=== PATIENT | female | born 1990 | race Hispanic/Latino ===

== ENCOUNTER → 2019-02-18 | Outpatient (CLI) | payer OTHER ==
--- NOTE | 2019-02-19 09:00 | US ---
EXAM DESCRIPTION: Breast,Bilateral: Ultrasound CLINICAL HISTORY: 28 yearsFemaleRIGHT BREAST LUMP, PAIN IN BOTH BREASTS . No personal history of breast cancer. Remote family history of breast cancer. Menarche age 8. Childbirth age 18. Premenopausal. No HRT Lifetime risk of developing breast cancer (Tyrer-Cuzick model)(%): Not Calculated due to patient age below 35. COMPARISON: Baseline study at this facility. TECHNIQUE: Transcutaneous scanning of the bilateral breasts utilizing adamson-scale and Doppler modes. Scanning performed by the inspector integrated circuits ; remote monitoring by Dr. Mayorga. Diagnostic digital mammography was not performed. FINDINGS: Ultrasound: Scanning of the right breast at the 3:00 position. Region of pain 6 cm from the nipple. Mostly fibroglandular tissues with minimal fatty tissues. No dominant solid mass or distinct cyst. No overlying skin changes. No large calcifications. Scanning of the left breast at the region of pain 9:00 position, 6 cm from the nipple. No dominant solid mass or distinct cyst. No large calcifications. No overlying skin changes. IMPRESSION: No suspicious or significant imaging findings. BI-RADS CATEGORY: 1 - NEGATIVE FOLLOW UP: The region of interest should be followed on clinical grounds and if noted to change in size or character, a directed follow-up ultrasound examination may be performed. Written communication explaining the findings and follow-up, will be mailed to the patient and referring health care provider. The FINDINGS and the FOLLOW-UP plan were reviewed in person with the patient by the breast inspector integrated circuits after the examination. According to the [employer], yearly mammograms are recommended starting at age 40 and continuing as long as a woman is in good health. Any breast change noted on a breast self-exam should be reported promptly to the patient's healthcare provider. Breast MRI is recommended for women with an approximately 20-25% or greater lifetime risk of breast cancer, including women with a strong family history of breast or ovarian cancer and women who have been treated for Hodgkin's disease. Electronically signed by: Mk Mayorga MD 02/19/2019 8:59 AM INTELLIGENCE OFFICER
== END ==
LOC: US 14:59
PROVIDERS: ATTEND Family Medicine
DX: N63.10 Unspecified lump in the right breast, unspecified quadrant (principal); N64.4 Mastodynia

== ENCOUNTER 2019-04-10 20:24 | Emergency (ER) | payer OTHER ==
[2019-04-10] MEDS ORDERED: HYDROcodone 7.5MG/APAP 325MG 1 EA TAB PO ONE ×2 (21:32→21:55)
[2019-04-10] MEDS ORDERED: AMOXICILLIN & POT CLAVULANATE 875 MG TAB PO ONE (21:55)
[2019-04-10] MEDS ORDERED: predniSONE 20 MG TAB PO ONE (21:55)
[2019-04-10] MEDS ORDERED: KETOROLAC TROMETHAMINE INJ 30 MG/ML VIAL IM ONE (21:55)
[2019-04-10] MEDS ORDERED: ONDANSETRON ODT 8 MG TAB SL ONE (21:58)
[2019-04-10] MEDS ORDERED: ONDANSETRON ODT 8 MG TAB ONE (21:59)
--- NOTE | 2019-04-10 23:22 | CT ---
EXAM: CT head without IV contrast CLINICAL DATA: right sided headache, 2wks, occasional nausea and vomiting TECHNICAL DATA: Multiple axial CT images of the brain were performed followed by sagittal and coronal reconstructed images. The CT study is performed according to ALARA (as low as reasonably achievable) or ALARA/IMAGE GENTLY, with automatic adjustment of mA and/or kV according to patient size. Performed on: 04/10/2019 at 10:57 PM Comparisons: None. FINDINGS: There is no evidence of mass, acute mass effect or midline shift. There are no acute extra-axial fluid collections. There is no evidence of acute intracranial hemorrhage. The cerebral sulci and ventricles are normal in size and configuration. There are no focal abnormal areas of increased or decreased attenuation. There is mild mucosal thickening of the left maxillary sinus. The mastoid air cells are clear. The orbital contents are grossly unremarkable. No acute osseous abnormalities are identified. No focal soft tissue abnormalities are identified. IMPRESSION: There is no evidence of acute intracranial pathology. Electronically signed by: Mary Anne Swift DO 04/10/2019 11:21 PM [facility]
[2019-04-10] MEDS ORDERED: SODIUM CHLORIDE 0.9% 1000ML 2,000 ML IVS ONE (23:31)
[2019-04-11 00:56] VITALS: O2SAT 100
--- NOTE | 2019-04-11 00:56 | ED.PDOC ---
History of Present Illness - General Chief Complaint: Headache Stated Complaint: headache for the past 2 weeks Time Seen by Provider: 04/10/19 21:32 Source: EMS notes reviewed, family Exam Limitations: clinical condition - History of Present Illness Initial Comments: . The patient is a 28-year-old female presented to the emergency room secondary to a fever that is been persistent for the last 2 weeks. It is primarily on the right side. She feels like it puts pressure on her right eye. No pain with any particular extraocular movement, no vision changes and no li mitation of any extraocular movement. No proptosis. She does have some pain towards the right ear as well as the right posterior upper neck. No real nuchal rigidity or meningeal signs. No altered mental status. She has had some nausea. She did throw up once here today. No history of any significant medical problems. She has had increased stomach upset since she has been taking Motrin for the headache. Decreased oral intake particularly liquids. No rash. No current sore throat. She does have sinus pressure over the right maxillary sinus. Timing/Duration: other Severity: severe - 2 weeks Improving Factors: nothing Worsening Factors: nothing Associated Symptoms: headaches, loss of appetite, malaise, nausea/vomiting Allergies/Adverse Reactions: Allergies NO KNOWN ALLERGY Allergy (Verified 04/10/19 21:30) Home Medications: Ambulatory Orders Amoxicillin & Pot Clavulanate [Augmentin Tab] 875 mg PO BID #14 tab 04/11/19 Famotidine 20 mg PO DAILY #14 tab 04/11/19 Ondansetron Odt [Zofran ODT] 4 mg PO Q8HR PRN #5 tab 04/11/19 Tramadol HCl 50 mg PO Q8HR PRN #20 tab 04/11/19 predniSONE [Prednisone] 20 mg PO DAILY #3 tab 04/11/19 Review of Systems - Review of Systems Constitutional: States: malaise EENTM: States: nose congestion Respiratory: States: no symptoms reported Cardiology: States: no symptoms reported Gastrointestinal/Abdominal: States: no symptoms reported Genitourinary: States: no symptoms reported Musculoskeletal: States: no symptoms reported Skin: States: no symptoms reported Neurological: States: headache Endocrine: States: no symptoms reported All other Systems: No Change from Baseline Past Medical History (General) - Patient Medical History Hx Seizures: No Hx Stroke: No Hx Dementia: No Hx Asthma: No Hx of COPD: No Hx Cardiac Disorders: No Hx Congestive Heart Failure: No Hx Pacemaker: No Hx Hypertension: No Hx Thyroid Disease: No Hx Diabetes: No Hx Gastroesophageal Reflux: No Hx Renal Disease: No Hx Cancer: No Hx of HIV: No Hx Hepatitis C: No Hx MRSA: No Surgical History: no surgical history - Vaccination History Hx Tetanus, Diphtheria Vaccination: Yes Hx Influenza Vaccination: No - Social History Hx Alcohol Use: No Family Medical History - Family History Mother Family History: Unknown Physical Exam - Physical Exam General Appearance: Alert, Obvious distress Eye Exam: bilateral normal Ears, Nose, Throat: hearing grossly normal, nasal congestion, other - Pain over the right maxillary sinus Neck: full range of motion, other - Pain to the paraspinal musculature to the right side of the atlantooccipital junction. Respiratory: lungs clear, normal breath sounds, no respiratory distress, no accessory muscle use Cardiovascular/Chest: normal peripheral pulses, no edema, tachycardia Peripheral Pulses: radial,right: 2+, radial,left: 2+ Gastrointestinal/Abdominal: non tender, soft Rectal Exam: deferred Back Exam: no CVA tenderness, no vertebral tenderness Extremity: normal range of motion, non-tender, normal inspection, no pedal edema, normal capillary refill Neurologic: expeller operator II-XII nml as tested, alert, normal mood/affect, oriented x 3, other - No focal neurological changes. Skin Exam: other - Flushed Comments: Vital Signs - 24 hr 04/10/19 04/10/19 04/10/19 21:15 22:11 23:00 Temperature 98.5 F Pulse Rate [ 88 72 60 monitor] Respiratory 18 18 18 Rate Blood Pressure 162/98 131/96 120/71 [Right Arm] O2 Sat by Pulse 100 97 99 Oximetry 04/11/19 00:37 Temperature 98.5 F Pulse Rate [ 54 L monitor] Respiratory 18 Rate Blood Pressure 111/70 [Right Arm] O2 Sat by Pulse 100 Oximetry Progress - Progress Progress: 04/11/19 00:58 The patient is a 28-year-old female presenting secondary to 2 weeks worth of headache. The patient does have a mild sinusitis which is likely contributing. Additionally she does have very significant dehydration which is certainly contributing. The patient will be placed on Augmentin and prednisone for the sinusitis. She was given 2 L of IV fluid here and needs to keep her self well-hydrated. She will be written for Zofran for as needed use to control any nausea. She needs to maintain a bland diet. She can use [id number] Flonase twice daily as well for the next 2 weeks to help with the sinusitis. She will be written for tramadol as well for as needed use for pain control. I do want her to follow-up with her primary care doctor before the weekend for reevaluation. Head CT and blood work were otherwise reassuring. ER warnings were given. pepcid can be used for the NSAID induced gastritis. [email or web address] rocha [id number] 04/11/19 01:03 - Results/Orders Results/Orders: Head CT shows no acute intracranial pathology. She does have mild sinusitis. See report for details. Laboratory Tests 04/10/19 04/10/19 04/10/19 21:37 22:34 22:34 WBC 9.1 RBC 4.35 Hgb 12.0 Hct 36.4 MCV 83.7 MCH 27.5 MCHC 32.9 L RDW 14.3 Plt Count 307 MPV 9.0 Absolute Neuts (auto) 4.90 Absolute Lymphs (auto) 3.30 Absolute Monos (auto) 0.60 Absolute Eos (auto) 0.30 Absolute Basos (auto) 0.10 Neutrophils % 53.9 Lymphocytes % 35.8 Monocytes % 6.4 Eosinophils % 3.2 Basophils % 0.7 Sodium 138 Potassium 4.0 Chloride 108 Carbon Dioxide 27 Anion Gap 7.0 L BUN 20 H Creatinine 0.65 BUN/Creatinine Ratio 30.8 H POC Glucose 101 Random Glucose 101 Serum Osmolality 278.4 Calcium 9.1 Magnesium 1.9 Total Bilirubin 0.2 AST 20 ALT 29 Alkaline Phosphatase 55 Serum Total Protein 6.9 Albumin 3.8 Globulin 3.1 Albumin/Globulin Ratio 1.2 TSH 1.48 Serum HCG, Qual 04/10/19 22:34 WBC RBC Hgb Hct MCV MCH MCHC RDW Plt Count MPV Absolute Neuts (auto) Absolute Lymphs (auto) Absolute Monos (auto) Absolute Eos (auto) Absolute Basos (auto) Neutrophils % Lymphocytes % Monocytes % Eosinophils % Basophils % Sodium Potassium Chloride Carbon Dioxide Anion Gap BUN Creatinine BUN/Creatinine Ratio POC Glucose Random Glucose Serum Osmolality Calcium Magnesium Total Bilirubin AST ALT Alkaline Phosphatase Serum Total Protein Albumin Globulin Albumin/Globulin Ratio TSH Serum HCG, Qual Negative Departure - Departure Clinical Impression: Sinus headache, Dehydration, NSAID induced gastritis Sinusitis Qualifiers: Sinusitis location: other Chronicity: subacute Qualified Code(s): J01.80 - Other acute sinusitis ICD-10 Supporting Text: Maxillary and ethmoidal Disposition: Discharge to Home or Self Care Condition: Fair Departure Forms: ED Discharge - Pt. Copy, Patient Portal Self Enrollment Instructions: DI for Headache, DI for Sinusitis, DI for Sinus Headache Diet: bland diet Activity: increase activity as tolerated Prescriptions: Ondansetron Odt [Zofran ODT] 4 mg PO Q8HR PRN #5 tab PRN Reason: Nausea--Moderate Tramadol HCl 50 mg PO Q8HR PRN #20 tab PRN Reason: Moderate Pain Amoxicillin & Pot Clavulanate [Augmentin Tab] 875 mg PO BID #14 tab Famotidine 20 mg PO DAILY #14 tab predniSONE [Prednisone] 20 mg PO DAILY #3 tab Home Medications: Ambulatory Orders Amoxicillin & Pot Clavulanate [Augmentin Tab] 875 mg PO BID #14 tab 04/11/19 Famotidine 20 mg PO DAILY #14 tab 04/11/19 Ondansetron Odt [Zofran ODT] 4 mg PO Q8HR PRN #5 tab 04/11/19 Tramadol HCl 50 mg PO Q8HR PRN #20 tab 04/11/19 predniSONE [Prednisone] 20 mg PO DAILY #3 tab 04/11/19 Additional Instructions: The patient is a 28-year-old female presenting secondary to 2 weeks worth of headache. The patient does have a mild sinusitis which is likely contributing. Additionally she does have very significant dehydration which is certainly contributing. The patient will be placed on Augmentin and prednisone for the sinusitis. She was given 2 L of IV fluid here and needs to keep her self well-hydrated. She will be written for Zofran for as needed use to control any nausea. She needs to maintain a bland diet. She can use [id number] Flonase twice daily as well for the next 2 weeks to help with the sinusitis. She can also take [id number] Pepcid daily for 1 week for the gastritis from the Motrin. She will be written for tramadol as well for as needed use for pain control. I do want her to follow-up with her primary care doctor before the weekend for reevaluation. Head CT and blood work were otherwise reassuring. ER warnings were given.
[2019-04-11 01:12] VITALS: BP 114/71; TEMP 97.6
== END 2019-04-11 01:13 | disposition home or self-care (01) ==
LOC: ER 20:24
DX: J01.80 Other acute sinusitis (principal); R51 Headache; E86.0 Dehydration; K29.70 Gastritis, unspecified, without bleeding; T39.395A Adverse effect of other nonsteroidal anti-inflammatory drugs [NSAID], initial encounter
CPT/HCPCS: 36416; 70450; 80053; 82948; 83735; 84443; 84703; 85025; 87502; J1885; J7030; J7512

== ENCOUNTER 2019-05-30 03:09 | Emergency (ER) | payer SELFPAY ==
--- NOTE | 2019-05-30 03:32 | ED.PDOC ---
History of Present Illness - General Chief Complaint: ENT Problem Stated Complaint: right jaw pain Time Seen by Provider: 05/30/19 03:24 Source: patient, RN notes reviewed, Vital Signs reviewed Exam Limitations: no limitations - History of Present Illness Timing/Duration: other - 2 days ago Severity: severe EENT Location: ear (R), facial, dental Prearrival Treatment: over the counter meds Improving Factors: nothing, medication - for about 40 minutes Worsening Factors: eating, movement Associated Symptoms: facial pain/swelling, tooth pain Allergies/Adverse Reactions: Allergies NO KNOWN ALLERGY Allergy (Verified 04/10/19 21:30) Home Medications: Ambulatory Orders Amoxicillin & Pot Clavulanate [Augmentin Tab] 875 mg PO BID #14 tab 04/11/19 Famotidine 20 mg PO DAILY #14 tab 04/11/19 Ondansetron Odt [Zofran ODT] 4 mg PO Q8HR PRN #5 tab 04/11/19 Tramadol HCl 50 mg PO Q8HR PRN #20 tab 04/11/19 predniSONE [Prednisone] 20 mg PO DAILY #3 tab 04/11/19 Meclizine HCl [Meclizine 25] 25 mg PO Q6H PRN #30 tab 04/16/19 Acetaminophen W/ Codeine [Tylenol W/ CODEINE #3] 1 ea PO Q6HR PRN 7 Days #20 05/30/19 Amoxicillin 500 mg PO TID 10 Days #30 cap 05/30/19 Review of Systems - Review of Systems Constitutional: Denies: chills, fever EENTM: States: ear pain, mouth pain Respiratory: Denies: cough, short of breath, stridor Cardiology: Denies: chest pain, palpitations Past Medical History (General) - Patient Medical History Hx Seizures: No Hx Stroke: No Hx Dementia: No Hx Asthma: No Hx of COPD: No Hx Cardiac Disorders: No Hx Congestive Heart Failure: No Hx Pacemaker: No Hx Hypertension: No Hx Thyroid Disease: No Hx Diabetes: No Hx Gastroesophageal Reflux: No Hx Renal Disease: No Hx Cancer: No Hx of HIV: No Hx Hepatitis C: No Hx MRSA: No - Vaccination History Hx Tetanus, Diphtheria Vaccination: Yes Hx Influenza Vaccination: Yes - Social History Hx Tobacco Use: No Hx Alcohol Use: No Family Medical History - Family History Mother Family History: Unknown Physical Exam - Physical Exam General Appearance: Anxious Eye Exam: bilateral normal Ear Exam: bilateral ear: auricle normal, canal normal, TM normal Nasal Exam: normal inspection Throat Exam: dental tenderness - tooth #1 Departure - Departure Clinical Impression: Dental caries, Toothache Time of Disposition: 03:35 Disposition: Discharge to Home or Self Care Condition: Good Departure Forms: ED Discharge - Pt. Copy, Patient Portal Self Enrollment Instructions: Dental Pain (DC) Referrals: Rory Dykes MD [Primary Care Provider] - 1-2 Weeks Prescriptions: Acetaminophen W/ Codeine [Tylenol W/ CODEINE #3] 1 ea PO Q6HR PRN 7 Days #20 PRN Reason: Moderate To Severe Pain Amoxicillin 500 mg PO TID 10 Days #30 cap Home Medications: Ambulatory Orders Amoxicillin & Pot Clavulanate [Augmentin Tab] 875 mg PO BID #14 tab 04/11/19 Famotidine 20 mg PO DAILY #14 tab 04/11/19 Ondansetron Odt [Zofran ODT] 4 mg PO Q8HR PRN #5 tab 04/11/19 Tramadol HCl 50 mg PO Q8HR PRN #20 tab 04/11/19 predniSONE [Prednisone] 20 mg PO DAILY #3 tab 04/11/19 Meclizine HCl [Meclizine 25] 25 mg PO Q6H PRN #30 tab 20 Acetaminophen W/ Codeine [Tylenol W/ CODEINE #3] 1 ea PO Q6HR PRN 7 Days #20 05/30/19 Amoxicillin 500 mg PO TID 10 Days #30 cap 05/30/19
[2019-05-30 03:41] VITALS: TEMP 97.8; O2SAT 98
[2019-05-30] MEDS ORDERED: traMADol HCL 50 MG TAB PO ONE (03:41)
[2019-05-30] MEDS ORDERED: IBUPROFEN 200 MG TAB PO ONE (03:41)
[2019-05-30 04:31] VITALS: BP 133/80
== END 2019-05-30 03:55 | disposition home or self-care (01) ==
LOC: ER 03:09
DX: K02.9 Dental caries, unspecified (principal); K08.89 Other specified disorders of teeth and supporting structures

== ENCOUNTER 2019-07-16 21:31 | Emergency (ER) | payer SELFPAY ==
--- NOTE | 2019-07-16 21:49 | ED.PDOC ---
History of Present Illness - General Chief Complaint: GI Problem Stated Complaint: nausea, vomiting Time Seen by Provider: 07/16/19 21:47 Information Source: patient Exam Limitations: no limitations Additional Information: The patient is a 29F with no significant past medical history who complains of abdominal pain. She has had generalized abdominal cramping pain with nausea/vomiting and diarrhea since yesterday. She denies hematemesis, hematochezia/melena. No vaginal bleeding, discharge or dysuria. No fevers, recent travel or new foods. No known sick contacts. No known or suspected COVID exposures. No other complaints at this time. Review of Systems - Review of Systems Constitutional: States: malaise, weakness - generalized EENTM: States: no symptoms reported Respiratory: States: no symptoms reported Cardiology: States: no symptoms reported Gastrointestinal/Abdominal: States: abdominal pain, diarrhea, nausea, vomiting Genitourinary: Denies: dysuria, frequency, hematuria, pain Musculoskeletal: States: no symptoms reported Skin: States: no symptoms reported Neurological: States: no symptoms reported Endocrine: States: no symptoms reported Hematologic/Lymphatic: States: no symptoms reported All other Systems: No Change from Baseline Past Medical History (General) - Patient Medical History Hx Seizures: No Hx Stroke: No Hx Dementia: No Hx Asthma: No Hx of COPD: No Hx Cardiac Disorders: No Hx Congestive Heart Failure: No Hx Pacemaker: No Hx Hypertension: No Hx Thyroid Disease: No Hx Diabetes: No Hx Gastroesophageal Reflux: No Hx Renal Disease: No Hx Cancer: No Hx of HIV: No Hx Hepatitis C: No Hx MRSA: No - Vaccination History Hx Tetanus, Diphtheria Vaccination: Yes Hx Influenza Vaccination: Yes Hx Pneumococcal Vaccination: No - Social History Hx Tobacco Use: No Hx Chewing Tobacco Use: No Hx Alcohol Use: No Hx Substance Use: No Hx Substance Use Treatment: No Hx Depression: Yes Hx Physical Abuse: No Hx Emotional Abuse: No Hx Suspected Abuse: No - Female History Patient : No Family Medical History - Family History Mother Family History: Unknown Physical Exam - Physical Exam General Appearance: Comfortable, No apparent distress Eyes, Ears, Nose, Throat Exam: normal ENT inspection Neck: non-tender, full range of motion Respiratory: lungs clear, normal breath sounds Cardiovascular/Chest: normal peripheral pulses, regular rate, rhythm Gastrointestinal/Abdominal: normal bowel sounds, tenderness - generalized upper abdominal tenderness, no focal tenderness Extremity: normal range of motion Neurologic: alert, normal mood/affect, oriented x 3 Progress - Progress Progress: 07/16/19 23:08 Patient reassessed, no acute lab abnormalities. Abdominal exam is not concerning for acute surgical abdomen. She is s/p cholecystectomy and she does not otherwise have focal tenderness. Symptoms most likely secondary to acute gastroenteritis and she is found to have urinary tract infection as well. Will continue outpatient symptomatic management and oral antibiotics. She will follow up with her primary care provider. Return indications reviewed. - Results/Orders Results/Orders: 07/16/19 22:02 Urine Culture Stat Laboratory Results - last 24 hr 07/16/19 07/16/19 07/16/19 22:02 22:02 22:02 WBC 10.9 H RBC 4.48 Hgb 12.5 Hct 37.6 MCV 83.9 MCH 28.0 MCHC 33.3 RDW 13.7 Plt Count 358 MPV 9.2 Absolute Neuts (auto) 7.40 H Absolute Lymphs (auto) 2.90 Absolute Monos (auto) 0.30 Absolute Eos (auto) 0.20 Absolute Basos (auto) 0.10 Neutrophils % 67.6 Lymphocytes % 26.6 Monocytes % 3.1 Eosinophils % 2.1 Basophils % 0.6 Sodium 136 Potassium 3.5 L Chloride 104 Carbon Dioxide 26 Anion Gap 9.5 L BUN 12 Creatinine 0.51 L BUN/Creatinine Ratio 23.5 H Random Glucose 91 Serum Osmolality 271.3 L Calcium 9.3 Total Bilirubin 0.3 AST 14 ALT 20 Alkaline Phosphatase 61 Serum Total Protein 7.9 Albumin 3.8 Globulin 4.1 H Albumin/Globulin Ratio 0.9 L Lipase 28 Serum HCG, Qual Negative Urine Color Urine Appearance Urine pH Ur Specific [place] Urine Protein Urine Glucose (UA) Urine Ketones Urine Blood Urine Nitrite Urine Bilirubin Urine Urobilinogen Ur Leukocyte Esterase Urine RBC Urine WBC Ur Epithelial Cells Urine Bacteria 07/16/19 22:02 WBC RBC Hgb Hct MCV MCH MCHC RDW Plt Count MPV Absolute Neuts (auto) Absolute Lymphs (auto) Absolute Monos (auto) Absolute Eos (auto) Absolute Basos (auto) Neutrophils % Lymphocytes % Monocytes % Eosinophils % Basophils % Sodium Potassium Chloride Carbon Dioxide Anion Gap BUN Creatinine BUN/Creatinine Ratio Random Glucose Serum Osmolality Calcium Total Bilirubin AST ALT Alkaline Phosphatase Serum Total Protein Albumin Globulin Albumin/Globulin Ratio Lipase Serum HCG, Qual Urine Color Yellow Urine Appearance Sl cloudy Urine pH 7.0 Ur Specific [place] 1.015 Urine Protein Negative Urine Glucose (UA) Negative Urine Ketones Negative Urine Blood Trace-lysed H Urine Nitrite Negative Urine Bilirubin Negative Urine Urobilinogen 0.2 Ur Leukocyte Esterase Moderate H Urine RBC 0-1 Urine WBC 5-10 H Ur Epithelial Cells 5-10 Urine Bacteria 2+ H Departure - Departure Clinical Impression: Gastroenteritis Abdominal pain Qualifiers: Abdominal location: generalized Qualified Code(s): R10.84 - Generalized abdominal pain Urinary tract infection Qualifiers: Urinary tract infection type: acute cystitis Hematuria presence: without hematuria Qualified Code(s): N30.00 - Acute cystitis without hematuria Time of Disposition: 23:10 Disposition: Discharge to Home or Self Care Condition: Fair Departure Forms: ED Discharge - Pt. Copy, Patient Portal Self Enrollment Diet: full liquid diet - advance as tolerated Activity: increase activity as tolerated Referrals: Rory Dykes MD [Primary Care Provider] - 1-2 Weeks Prescriptions: Dicyclomine HCl [Bentyl] 20 mg PO Q6HR #20 tab Ciprofloxacin HCl [Cipro] 500 mg PO BID #14 tab Promethazine Tab [Phenergan Tablet] 25 mg PO .Q4H #20 tab Home Medications: Ambulatory Orders Amoxicillin & Pot Clavulanate [Augmentin Tab] 875 mg PO BID #14 tab 04/11/19 Famotidine 20 mg PO DAILY #14 tab 04/11/19 Ondansetron Odt [Zofran ODT] 4 mg PO Q8HR PRN #5 tab 04/11/19 Tramadol HCl 50 mg PO Q8HR PRN #20 tab 04/11/19 predniSONE [Prednisone] 20 mg PO DAILY #3 tab 04/11/19 Meclizine HCl [Meclizine 25] 25 mg PO Q6H PRN #30 tab 04/16/19 Acetaminophen W/ Codeine [Tylenol W/ CODEINE #3] 1 ea PO Q6HR PRN 7 Days #20 05/30/19 Amoxicillin 500 mg PO TID 10 Days #30 cap 05/30/19 Ciprofloxacin HCl [Cipro] 500 mg PO BID #14 tab 07/16/19 Dicyclomine HCl [Bentyl] 20 mg PO Q6HR #20 tab 07/16/19 Promethazine Tab [Phenergan Tablet] 25 mg PO .Q4H #20 tab 07/16/19
[2019-07-16] MEDS ORDERED: MORPHINE SULFATE INJ 10 MG/ML VIAL IV ONE (21:51)
[2019-07-16] MEDS ORDERED: ONDANSETRON INJ 4 MG/2 ML VIAL IV ONE (21:51)
[2019-07-16] MEDS ORDERED: SODIUM CHLORIDE 0.9% 1000ML 1,000 ML IVS ONE (21:51)
[2019-07-16 22:53] VITALS: O2SAT 100
[2019-07-16] MEDS ORDERED: DICYCLOMINE HCL INJ 20 MG/2 ML AMP IM ONE (22:54)
[2019-07-17 00:01] VITALS: BP 118/75; TEMP 98.9
== END 2019-07-17 00:01 | disposition home or self-care (01) ==
LOC: ER 21:31
DX: K52.9 Noninfective gastroenteritis and colitis, unspecified (principal); N30.00 Acute cystitis without hematuria; R10.84 Generalized abdominal pain
CPT/HCPCS: 80053; 81001; 83690; 84703; 85025; 87086; J0500; J2270; J2405; J7030

== ENCOUNTER 2019-08-30 21:05 | Emergency (ER) | payer SELFPAY ==
[2019-08-30] MEDS ORDERED: predniSONE 20 MG TAB PO ONE (21:19)
[2019-08-30] MEDS ORDERED: diphenhydrAMINE HCL 25 MG CAP PO ONE (21:19)
--- NOTE | 2019-08-30 21:23 | ED.PDOC ---
History of Present Illness - General Time Seen by Provider: 08/30/19 21:07 Source: patient Exam Limitations: no limitations - History of Present Illness Initial Comments: The patient is a 29-year-old female presented emergency room after a wasp or bee sting to the left lateral thigh that occurred approximately 4 hours ago. The patient has an area of induration approximately 8 cm in diameter. No stinger is still present. She has had multiple stings in the past but they seem to be giving stronger reactions now. No shortness of breath. No oral lesions. No nausea or vomiting. Vital signs are within normal limits. No hypoxia. Lung dowell are clear. No hoarseness. Timing/Duration: 4-6 hours Severity: mild Improving Factors: nothing Worsening Factors: nothing Associated Symptoms: malaise Allergies/Adverse Reactions: Allergies NO KNOWN ALLERGY Allergy (Verified 04/10/19 21:30) Home Medications: Ambulatory Orders Amoxicillin & Pot Clavulanate [Augmentin Tab] 875 mg PO BID #14 tab 04/11/19 Famotidine 20 mg PO DAILY #14 tab 04/11/19 Ondansetron Odt [Zofran ODT] 4 mg PO Q8HR PRN #5 tab 04/11/19 Tramadol HCl 50 mg PO Q8HR PRN #20 tab 04/11/19 predniSONE [Prednisone] 20 mg PO DAILY #3 tab 04/11/19 Meclizine HCl [Meclizine 25] 25 mg PO Q6H PRN #30 tab 04/16/19 Acetaminophen W/ Codeine [Tylenol W/ CODEINE #3] 1 ea PO Q6HR PRN 7 Days #20 05/30/19 Amoxicillin 500 mg PO TID 10 Days #30 cap 05/30/19 Ciprofloxacin HCl [Cipro] 500 mg PO BID #14 tab 07/16/19 Dicyclomine HCl [Bentyl] 20 mg PO Q6HR #20 tab 07/16/19 Promethazine Tab [Phenergan Tablet] 25 mg PO .Q4H #20 tab 07/16/19 predniSONE [Prednisone] 20 mg PO DAILY #3 tab 08/30/19 Review of Systems - Review of Systems Constitutional: States: malaise EENTM: States: no symptoms reported Respiratory: States: no symptoms reported Cardiology: States: no symptoms reported Gastrointestinal/Abdominal: States: no symptoms reported Genitourinary: States: no symptoms reported Skin: States: see HPI Neurological: States: no symptoms reported Endocrine: States: no symptoms reported Hematologic/Lymphatic: States: no symptoms reported All other Systems: No Change from Baseline Past Medical History (General) - Patient Medical History Hx Seizures: No Hx Stroke: No Hx Dementia: No Hx Asthma: No Hx of COPD: No Hx Cardiac Disorders: No Hx Congestive Heart Failure: No Hx Pacemaker: No Hx Hypertension: No Hx Thyroid Disease: No Hx Diabetes: No Hx Gastroesophageal Reflux: No Hx Renal Disease: No Hx Cancer: No Hx of HIV: No Hx Hepatitis C: No Hx MRSA: No - Vaccination History Hx Tetanus, Diphtheria Vaccination: Yes Hx Influenza Vaccination: Yes Hx Pneumococcal Vaccination: No - Social History Hx Tobacco Use: No Hx Chewing Tobacco Use: No Hx Alcohol Use: No Hx Substance Use: No Hx Substance Use Treatment: No Hx Depression: Yes Hx Physical Abuse: No Hx Emotional Abuse: No Hx Suspected Abuse: No - Female History Hx Last Menstrual Period: 06/21/19 Patient : No Family Medical History - Family History Mother Family History: Unknown Physical Exam - Physical Exam General Appearance: Alert, No apparent distress Eye Exam: bilateral normal Ears, Nose, Throat: hearing grossly normal, normal pharynx Neck: full range of motion Respiratory: lungs clear, normal breath sounds, no respiratory distress, no accessory muscle use Cardiovascular/Chest: normal peripheral pulses, no edema, other - Regular rate Peripheral Pulses: radial,right: 2+, radial,left: 2+ Gastrointestinal/Abdominal: non tender, soft Rectal Exam: deferred Back Exam: normal inspection Extremity: normal range of motion, no pedal edema, no calf tenderness, normal capillary refill Neurologic: mounter II-XII nml as tested, alert, normal mood/affect, oriented x 3 Skin Exam: other - Area of erythema and induration to the left lateral upper thigh about 8 cm in diameter. Progress - Progress Progress: 08/30/19 21:22 The patient is a 29-year-old female presenting with a localized reaction after either a wasp or a bee sting. No evidence of anaphylaxis at this time. The patient is given a 50 mg dose of Benadryl and 40 mg dose of prednisone. She needs to take 10 mg of Zyrtec daily for the next week. The patient will be also written for 20 mg of prednisone daily for the next 3 days. ER warnings are given for any significant worsening. She should expect some inflammation to the localized area for the next 3 to 5 days. [email or web address] [id number] Departure - Departure Clinical Impression: Bee sting reaction Qualifiers: Encounter type: initial encounter Injury intent: accidental or unintentional Qualified Code(s): T63.441A - Toxic effect of venom of bees, accidental (unintentional), initial encounter Disposition: Discharge to Home or Self Care Condition: Fair Diet: regular diet Activity: increase activity as tolerated Referrals: Yoselyn Storey NP [Primary Care Provider] - 1-2 Weeks Prescriptions: predniSONE [Prednisone] 20 mg PO DAILY #3 tab Home Medications: Ambulatory Orders Amoxicillin & Pot Clavulanate [Augmentin Tab] 875 mg PO BID #14 tab 04/11/19 Famotidine 20 mg PO DAILY #14 tab 04/11/19 Ondansetron Odt [Zofran ODT] 4 mg PO Q8HR PRN #5 tab 04/11/19 Tramadol HCl 50 mg PO Q8HR PRN #20 tab 04/11/19 predniSONE [Prednisone] 20 mg PO DAILY #3 tab 04/11/19 Meclizine HCl [Meclizine 25] 25 mg PO Q6H PRN #30 tab 04/16/19 Acetaminophen W/ Codeine [Tylenol W/ CODEINE #3] 1 ea PO Q6HR PRN 7 Days #20 05/30/19 Amoxicillin 500 mg PO TID 10 Days #30 cap 05/30/19 Ciprofloxacin HCl [Cipro] 500 mg PO BID #14 tab 07/16/19 Dicyclomine HCl [Bentyl] 20 mg PO Q6HR #20 tab 07/16/19 Promethazine Tab [Phenergan Tablet] 25 mg PO .Q4H #20 tab 07/16/19 predniSONE [Prednisone] 20 mg PO DAILY #3 tab 08/30/19 Additional Instructions: The patient is a 29-year-old female presenting with a localized reaction after either a wasp or a bee sting. No evidence of anaphylaxis at this time. The patient is given a 50 mg dose of Benadryl and 40 mg dose of prednisone. She needs to take 10 mg of Zyrtec daily for the next week. The patient will be also written for 20 mg of prednisone daily for the next 3 days. ER warnings are given for any significant worsening. She should expect some inflammation to the localized area for the next 3 to 5 days.
[2019-08-30 21:30] VITALS: BP 143/97; TEMP 97.6; O2SAT 98
== END 2019-08-30 21:27 | disposition home or self-care (01) ==
LOC: ER 21:05
DX: T63.441A Toxic effect of venom of bees, accidental (unintentional), initial encounter (principal); Y92.9 Unspecified place or not applicable
CPT/HCPCS: J7512; Q0163